=== PATIENT | female | born 1930 | race African-American/Black ===

== ENCOUNTER 2018-01-08 13:51 | Inpatient (IN) | payer MEDICARE, MEDICAID ==
[~2018-01-08] VITALS: Ht 154.9 cm; Wt 45.4 kg
[~2018-01-08 13:51] MED LIST: GLYB5TAB4; LOSA50TA20 PO; azithromycin; ibuprofen PO; metformin PO; tramadol PO
[2018-01-08 16:49] LABS: BASOPHILS % 0.6 % (0.0-2.0); HEMATOCRIT. 38.5 % (36.0-48.0); HEMOGLOBIN. 12.6 g/dL (12.0-16.0); LYMPHOCYTES % 33.8 % (20.0-50.0); MEAN CORPUSCULAR HEMOGLOBIN 30.5 pg (28.0-32.0); MEAN CORPUSCULAR VOLUME 93.5 fL (81.0-99.0); MEAN PLATELET VOLUME 8.9 fl (7.4-10.4); MONOCYTES % 8.3 % (2.0-8.0); NEUTROPHILS % 56.3 % (40.0-76.0); PLATELET 164 x1000/uL (130-400); RED BLOOD CELL COUNT 4.12 mill/uL (4.2-5.4); RED CELL DISTRIBUTION WIDTH 14.5 % (11.6-14.6)
[2018-01-08 16:50] LABS: CHLORIDE 109 mEq/L (98-107)
[2018-01-08] MEDS ORDERED: ACETAMINOPHEN 650MG SUPP PR PRN (18:45)
[2018-01-08] MEDS ORDERED: DEXTROSE 50% WATER 50ML SYRINGE IV PRN (18:45)
[2018-01-08] MEDS ORDERED: HYDROCODONE/ACETAMINOPHEN 10/325MG TABLET PO PRN (18:45)
[2018-01-08] MEDS ORDERED: ONDANSETRON HCL 4MG/2ML INJ IV PRN (18:45)
[2018-01-08] MEDS ORDERED: DIPHENHYDRAMINE 50MG/ML VIAL IV PRN (18:45)
[2018-01-08] MEDS ORDERED: IPRATROPIUM/ALBUTEROL 0.5-3(2.5)MG/3ML NEB INH PRN (18:45)
[2018-01-08] MEDS ORDERED: ACETAMINOPHEN 325MG TABLET PO PRN (18:45)
[2018-01-08] MEDS ORDERED: CLONIDINE 0.1MG TABLET PO PRN (18:45)
[2018-01-08] MEDS ORDERED: GUAIFENESIN 200MG/10ML SUGAR FREE UDC PO PRN (18:45)
[2018-01-08] MEDS ORDERED: ENOXAPARIN 40MG/0.4ML SYR SUBCUT SCH (18:45)
[2018-01-08] MEDS ORDERED: ACETAMINOPHEN 650MG/20.3ML UDC GT PRN (18:45)
[2018-01-08] MEDS ORDERED: NA PHOS,M-B/NA PHOS,DI-BA ENEMA 118ML PR PRN (18:45)
[2018-01-08] MEDS ORDERED: MAGNESIUM/ALUMINUM HYDROXIDE/SIMETHICONE 30ML UDC PO PRN (18:45)
[2018-01-08] MEDS: INSULIN LISPRO 100 UNITS/ML SUBCUT SCH (21:00)
[2018-01-08 21:10] VITALS: BP 145/92
[2018-01-08] MEDS: BLOOD SUGAR DIAGNOSTIC STRIP TEST SCH (21:42)
[2018-01-08] MEDS: SODIUM CHLORIDE 0.9% INJ 3ML FLUSH IVF SCH (21:45)
[2018-01-08 22:00] VITALS: BP 145/92
[2018-01-08] MEDS: ENOXAPARIN 30MG/0.3ML SYR SUBCUT SCH (22:08)
[2018-01-09] VITALS: BP 133/76
[2018-01-09 01:36] LABS: CREATINE KINASE MB FRACTION 1.5 ng/mL (0.5-3.6)
[2018-01-09 04:00] VITALS: BP 130/80
[2018-01-09 06:59] LABS: BASOPHILS % 0.9 % (0.0-2.0); EOSINOPHILS % 2.8 % (0.0-5.0); HEMATOCRIT. 38.1 % (36.0-48.0); HEMOGLOBIN. 12.4 g/dL (12.0-16.0); LYMPHOCYTES % 43.6 % (20.0-50.0); MEAN CORPUSCULAR HEMOGLOBIN 30.3 pg (28.0-32.0); MEAN CORPUSCULAR VOLUME 93.1 fL (81.0-99.0); MEAN PLATELET VOLUME 9.7 fl (7.4-10.4); MONOCYTES % 9.2 % (2.0-8.0); NEUTROPHILS % 43.5 % (40.0-76.0); PLATELET 170 x1000/uL (130-400); RED CELL DISTRIBUTION WIDTH 14.3 % (11.6-14.6)
[2018-01-09 07:33] LABS: CHLORIDE 110 mEq/L (98-107)
[2018-01-09] MEDS: INSULIN LISPRO 100 UNITS/ML SUBCUT SCH ×4 (07:40→21:00)
[2018-01-09 07:53] LABS: CREATINE KINASE 50 IU/L (26-192); HDL CHOLESTEROL 53 mg/dL (40-59); LDL CHOLESTEROL 74 mg/dL (5-100)
[2018-01-09 07:57] LABS: CREATINE KINASE MB FRACTION 1.1 ng/mL (0.5-3.6)
[2018-01-09 08:00] VITALS: BP_SYST 102; BP_SYST 112; BP_SYST 132; BP_DIAS 65; BP_DIAS 73; BP_DIAS 80
[2018-01-09 12:00] VITALS: BP 110/74
[2018-01-09] MEDS: BLOOD SUGAR DIAGNOSTIC STRIP TEST SCH ×3 (12:35→21:06)
[2018-01-09] MEDS: SODIUM CHLORIDE 0.9% INJ 3ML FLUSH IVF SCH ×2 (13:36→21:06)
[2018-01-09] MEDS: HYDROCODONE/ACETAMINOPHEN 5/325MG TABLET PO PRN ×2 (13:49→18:02)
[2018-01-09 15:26] LABS: CLARITY URINE CLOUDY (CLEAR); COLOR URINE DARK YELLOW (YELLOW); KETONES URINE NEGATIVE (NEGATIVE); LEUKOCYTE ESTERASE URINE 2+ (NEGATIVE); NITRITE URINE NEGATIVE (NEGATIVE); OCCULT BLOOD URINE NEGATIVE (NEGATIVE); PROTEIN URINE NEGATIVE (NEGATIVE); SPECIFIC GRAVITY URINE 1.017 (1.005-1.030)
[2018-01-09 15:41] LABS: *BARBITURATES SCREEN URINE NEGATIVE (NEGATIVE); *COCAINE SCREEN URINE NEGATIVE (NEGATIVE)
[2018-01-09 15:42] LABS: *AMPHETAMINES SCREEN URINE NEGATIVE (NEGATIVE); *BENZODIAZEPINES SCREEN URINE NEGATIVE (NEGATIVE); METHADONE URINE SCREEN NEGATIVE (NEGATIVE); OPIATES URINE SCREEN NEGATIVE (NEGATIVE); PHENCYCLIDINE URINE SCREEN NEGATIVE (NEGATIVE)
[2018-01-09 15:43] LABS: CANNABINOID URINE SCREEN NEGATIVE (NEGATIVE)
[2018-01-09 16:00] VITALS: BP 130/89
[2018-01-09] MEDS ORDERED: POTASSIUM CHLORIDE 20MEQ TABLET SR PO NR (19:30)
[2018-01-09 20:00] VITALS: BP_SYST 121; BP_SYST 132; BP_SYST 97; BP_DIAS 68; BP_DIAS 72; BP_DIAS 76
[2018-01-09] MEDS: ENOXAPARIN 30MG/0.3ML SYR SUBCUT SCH (23:27)
[2018-01-10] VITALS: BP 139/95
[2018-01-10] MEDS: IPRATROPIUM/ALBUTEROL 0.5-3(2.5)MG/3ML NEB INH SCH ×4 (00:50→21:41)
[2018-01-10 04:00] VITALS: BP 141/72
[2018-01-10] MEDS: HYDROCODONE/ACETAMINOPHEN 5/325MG TABLET PO PRN ×2 (04:11→17:36)
[2018-01-10] MEDS: SODIUM CHLORIDE 0.9% INJ 3ML FLUSH IVF SCH ×3 (05:40→21:38)
[2018-01-10] MEDS: INSULIN LISPRO 100 UNITS/ML SUBCUT SCH ×4 (07:40→21:00)
[2018-01-10 08:00] VITALS: BP 127/78
[2018-01-10] MEDS ORDERED: IOHEXOL-350 100 ML BOTTLE ONE (09:45)
[2018-01-10] MEDS: ASPIRIN 81MG TABLET PO SCH (10:37)
[2018-01-10] MEDS: NITROFURANTOIN 100MG M/M CAPSULE PO SCH ×2 (10:37→21:38)
[2018-01-10] MEDS: MIDODRINE HCL 2.5MG TABLET PO SCH ×3 (10:38→17:35)
[2018-01-10] MEDS: BLOOD SUGAR DIAGNOSTIC STRIP TEST SCH ×3 (11:32→21:00)
[2018-01-10 12:00] VITALS: BP_SYST 103; BP_SYST 85; BP_SYST 94; BP_DIAS 52; BP_DIAS 54; BP_DIAS 63
[2018-01-10 16:00] VITALS: BP 135/82
[2018-01-10 20:00] VITALS: BP_SYST 139; BP_SYST 86; BP_SYST 90; BP_DIAS 54; BP_DIAS 60; BP_DIAS 89
[2018-01-10] MEDS: ENOXAPARIN 30MG/0.3ML SYR SUBCUT SCH (23:40)
[2018-01-11] VITALS (7 sets, daily range): BP systolic 90–144; BP diastolic 52–83
[2018-01-11 00:39] LABS: CHLORIDE 106 mEq/L (98-107)
[2018-01-11 00:44] LABS: BASOPHILS % 0.9 % (0.0-2.0); EOSINOPHILS % 2.6 % (0.0-5.0); HEMATOCRIT. 38.7 % (36.0-48.0); HEMOGLOBIN. 12.8 g/dL (12.0-16.0); LYMPHOCYTES % 51.4 % (20.0-50.0); MEAN CORPUSCULAR HEMOGLOBIN 31.3 pg (28.0-32.0); MEAN CORPUSCULAR VOLUME 94.7 fL (81.0-99.0); MEAN PLATELET VOLUME 9.1 fl (7.4-10.4); MONOCYTES % 9.1 % (2.0-8.0); PLATELET 201 x1000/uL (130-400); RED BLOOD CELL COUNT 4.09 mill/uL (4.2-5.4); RED CELL DISTRIBUTION WIDTH 14.4 % (11.6-14.6)
[2018-01-11] MEDS: HYDROCODONE/ACETAMINOPHEN 5/325MG TABLET PO PRN ×2 (00:49→06:14)
[2018-01-11] MEDS: IPRATROPIUM/ALBUTEROL 0.5-3(2.5)MG/3ML NEB INH SCH ×2 (01:18→08:33)
[2018-01-11] MEDS: BUDESONIDE 0.5MG/2ML NEB HHN SCH ×3 (05:00→21:25)
[2018-01-11] MEDS: BLOOD SUGAR DIAGNOSTIC STRIP TEST SCH ×4 (05:29→20:16)
[2018-01-11] MEDS: SODIUM CHLORIDE 0.9% INJ 3ML FLUSH IVF SCH ×3 (05:42→20:53)
[2018-01-11] MEDS: INSULIN LISPRO 100 UNITS/ML SUBCUT SCH ×4 (05:52→20:16)
[2018-01-11 07:40] LABS: EOSINOPHILS % 3.2 % (0.0-5.0); HEMATOCRIT. 39.4 % (36.0-48.0); HEMOGLOBIN. 12.8 g/dL (12.0-16.0); LYMPHOCYTES % 55.5 % (20.0-50.0); MEAN CORPUSCULAR HEMOGLOBIN 30.6 pg (28.0-32.0); MEAN PLATELET VOLUME 9.4 fl (7.4-10.4); MONOCYTES % 9.6 % (2.0-8.0); NEUTROPHILS % 30.7 % (40.0-76.0); PLATELET 191 x1000/uL (130-400); RED BLOOD CELL COUNT 4.19 mill/uL (4.2-5.4); RED CELL DISTRIBUTION WIDTH 14.3 % (11.6-14.6)
[2018-01-11] MEDS: NITROFURANTOIN 100MG M/M CAPSULE PO SCH ×2 (09:14→20:52)
[2018-01-11] MEDS: DOCUSATE SODIUM 100MG CAPSULE PO PRN ×2 (09:14→12:37)
[2018-01-11] MEDS: MIDODRINE HCL 2.5MG TABLET PO SCH ×3 (09:14→16:40)
[2018-01-11] MEDS: ASPIRIN 81MG TABLET PO SCH (09:15)
[2018-01-11] MEDS ORDERED: DEXT 5%/0.45% NACL 1000ML 1,000 ML IV SCH (13:45)
[2018-01-11] MEDS: IPRATROPIUM BROMIDE (0.02%) 0.5MG/2.5ML NEB HHN SCH ×2 (15:16→21:25)
[2018-01-11] MEDS ORDERED: POTASSIUM CHLORIDE 20MEQ TABLET SR PO SCH (16:00)
[2018-01-11] MEDS ORDERED: MAGNESIUM CITRATE 300ML SOLUTION PO SCH (16:00)
[2018-01-11] MEDS: ENOXAPARIN 30MG/0.3ML SYR SUBCUT SCH (23:58)
[2018-01-12] VITALS: BP 120/65
[2018-01-12] MEDS: IPRATROPIUM BROMIDE (0.02%) 0.5MG/2.5ML NEB HHN SCH ×2 (02:18→08:20)
[2018-01-12 04:00] VITALS: BP 112/82
[2018-01-12] MEDS: HYDROCODONE/ACETAMINOPHEN 5/325MG TABLET PO PRN ×2 (04:50→08:55)
[2018-01-12] MEDS: SODIUM CHLORIDE 0.9% INJ 3ML FLUSH IVF SCH (06:00)
[2018-01-12] MEDS: INSULIN LISPRO 100 UNITS/ML SUBCUT SCH (06:04)
[2018-01-12] MEDS: BLOOD SUGAR DIAGNOSTIC STRIP TEST SCH (06:04)
[2018-01-12 07:54] VITALS: BP 107/58
[2018-01-12 08:00] VITALS: BP 107/58
[2018-01-12] MEDS: BUDESONIDE 0.5MG/2ML NEB HHN SCH (08:20)
[2018-01-12] MEDS: DOCUSATE SODIUM 100MG CAPSULE PO PRN (08:54)
[2018-01-12] MEDS: MIDODRINE HCL 2.5MG TABLET PO SCH (08:54)
[2018-01-12] MEDS: NITROFURANTOIN 100MG M/M CAPSULE PO SCH (08:54)
[2018-01-12] MEDS: ASPIRIN 81MG TABLET PO SCH (08:55)
== END 2018-01-12 10:33 | disposition home or self-care (01) | DRG 871 ==
LOC: ER 13:51 → ENRESERV 20:20 → 8WST 21:09
PROVIDERS: ADMIT Family Medicine; ATTEND Family Medicine
DX: A41.9 Sepsis, unspecified organism (principal); J96.00 Acute respiratory failure, unspecified whether with hypoxia or hypercapnia; I50.43 Acute on chronic combined systolic (congestive) and diastolic (congestive) heart failure; J84.9 Interstitial pulmonary disease, unspecified; N39.0 Urinary tract infection, site not specified; I42.9 Cardiomyopathy, unspecified; I48.1 Persistent atrial fibrillation; I11.0 Hypertensive heart disease with heart failure; E11.9 Type 2 diabetes mellitus without complications; I65.29 Occlusion and stenosis of unspecified carotid artery; E87.6 Hypokalemia; F17.210 Nicotine dependence, cigarettes, uncomplicated; I34.0 Nonrheumatic mitral (valve) insufficiency; J44.9 Chronic obstructive pulmonary disease, unspecified; I48.2 Chronic atrial fibrillation; I95.1 Orthostatic hypotension; K21.9 Gastro-esophageal reflux disease without esophagitis; K44.9 Diaphragmatic hernia without obstruction or gangrene; K80.20 Calculus of gallbladder without cholecystitis without obstruction; Z86.73 Personal history of transient ischemic attack (TIA), and cerebral infarction without residual deficits; Z79.899 Other long term (current) drug therapy; Z71.6 Tobacco abuse counseling
CPT/HCPCS: 36415; 71045; 71275; 80048; 80061; 80305; 82550; 82553; 82962; 83036; 83605; 83735; 83880; 84484; 85379; 87070; 87430; 87804; 92610; 93005; 93970; 94640; 97162; 99285; J1650; J7620; J7626; Q9967

== ENCOUNTER 2018-02-24 13:47 | Emergency (ER) | payer MEDICARE, MEDICAID ==
[~2018-02-24] VITALS: Ht 152.4 cm; Wt 45.5 kg
[~2018-02-24 13:47] MED LIST changes: -LOSA50TA20 PO; -azithromycin; -ibuprofen PO; -metformin PO; -tramadol PO
[2018-02-24] MEDS ORDERED: SODIUM CHLORIDE 0.9% 500 ML IV ONE (14:36)
[2018-02-24] MEDS ORDERED: ONDANSETRON HCL 4MG/2ML INJ IV ONE (14:45)
[2018-02-24] MEDS ORDERED: MECLIZINE 25MG TABLET PO ONE (14:45)
[2018-02-24 15:30] LABS: BASOPHILS % 1.3 % (0.0-2.0); EOSINOPHILS % 3.7 % (0.0-5.0); HEMATOCRIT. 36.2 % (36.0-48.0); HEMOGLOBIN. 11.6 g/dL (12.0-16.0); LYMPHOCYTES % 34.9 % (20.0-50.0); MEAN CORPUSCULAR HEMOGLOBIN 29.7 pg (28.0-32.0); MEAN CORPUSCULAR VOLUME 93.1 fL (81.0-99.0); MONOCYTES % 7.6 % (2.0-8.0); NEUTROPHILS % 52.5 % (40.0-76.0); PLATELET 212 x1000/uL (130-400); RED BLOOD CELL COUNT 3.88 mill/uL (4.2-5.4); RED CELL DISTRIBUTION WIDTH 15.9 % (11.6-14.6)
[2018-02-24 15:36] LABS: CHLORIDE 112 mEq/L (98-107)
[2018-02-24 18:02] VITALS: BP 138/69
== END 2018-02-24 18:04 | disposition home or self-care (01) ==
LOC: ER 13:47
DX: R42 Dizziness and giddiness (principal); E11.9 Type 2 diabetes mellitus without complications; I10 Essential (primary) hypertension; Z98.1 Arthrodesis status; Z98.890 Other specified postprocedural states; Z87.891 Personal history of nicotine dependence; Z79.84 Long term (current) use of oral hypoglycemic drugs
CPT/HCPCS: 36415; 71045; 80053; 85025; 93005; 96361; 96374; 99284; J2405; J7030; J8597

== ENCOUNTER 2018-03-17 09:51 | Inpatient (IN) | payer MEDICARE, MEDICAID ==
[~2018-03-17] VITALS: Ht 157.5 cm; Wt 42.6 kg
[2018-03-17] MEDS ORDERED: ALBUTEROL (0.083%) 2.5MG/3ML NEB HHN STA (10:32)
[2018-03-17] MEDS ORDERED: FUROSEMIDE 20MG/2ML VIAL IVP ONE (10:45)
[2018-03-17 11:02] LABS: BASOPHILS % 1.1 % (0.0-2.0); EOSINOPHILS % 4.4 % (0.0-5.0); HEMATOCRIT. 38.8 % (36.0-48.0); HEMOGLOBIN. 12.5 g/dL (12.0-16.0); LYMPHOCYTES % 35.7 % (20.0-50.0); MEAN CORPUSCULAR HEMOGLOBIN 29.9 pg (28.0-32.0); MEAN CORPUSCULAR VOLUME 92.9 fL (81.0-99.0); MEAN PLATELET VOLUME 8.8 fl (7.4-10.4); MONOCYTES % 7.6 % (2.0-8.0); NEUTROPHILS % 51.2 % (40.0-76.0); PLATELET 215 x1000/uL (130-400); RED BLOOD CELL COUNT 4.17 mill/uL (4.2-5.4); RED CELL DISTRIBUTION WIDTH 16.4 % (11.6-14.6)
[2018-03-17 11:05] LABS: CHLORIDE 108 mEq/L (98-107)
[2018-03-17 11:09] LABS: INR 1.1; PARTIAL THROMBOPLASTIN TIME 31.6 sec (23.4-31.0)
[2018-03-17 12:13] LABS: CLARITY URINE CLEAR (CLEAR); COLOR URINE YELLOW (YELLOW); KETONES URINE NEGATIVE (NEGATIVE); LEUKOCYTE ESTERASE URINE NEGATIVE (NEGATIVE); NITRITE URINE NEGATIVE (NEGATIVE); OCCULT BLOOD URINE NEGATIVE (NEGATIVE); PROTEIN URINE NEGATIVE (NEGATIVE); SPECIFIC GRAVITY URINE 1.011 (1.005-1.030)
[2018-03-17] MEDS ORDERED: MAGNESIUM/ALUMINUM HYDROXIDE/SIMETHICONE 30ML UDC PO PRN (12:15)
[2018-03-17] MEDS ORDERED: IPRATROPIUM/ALBUTEROL 0.5-3(2.5)MG/3ML NEB INH PRN (12:15)
[2018-03-17] MEDS ORDERED: MORPHINE SULFATE 4 MG/ML CPJ (NOT FOR IM USE) IV PRN (12:15)
[2018-03-17] MEDS ORDERED: DIPHENHYDRAMINE 50MG/ML VIAL IV PRN (12:15)
[2018-03-17] MEDS ORDERED: CLONIDINE 0.1MG TABLET PO PRN (12:15)
[2018-03-17] MEDS ORDERED: ONDANSETRON HCL 4MG/2ML INJ IV PRN (12:15)
[2018-03-17] MEDS ORDERED: DOCUSATE SODIUM 100MG CAPSULE PO PRN (12:15)
[2018-03-17] MEDS ORDERED: GUAIFENESIN 200MG/10ML SUGAR FREE UDC PO PRN (12:15)
[2018-03-17 16:00] VITALS: BP 132/81
[2018-03-17] MEDS: ACETAMINOPHEN 325MG TABLET PO PRN ×2 (16:29→22:03)
[2018-03-17 16:40] VITALS: BP 132/81
[2018-03-17] MEDS ORDERED: LEVOFLOXACIN 500MG PREMIX 100 ML IV NR (17:30)
[2018-03-17] MEDS: DILTIAZEM HCL 30MG TABLET PO SCH ×2 (18:20→22:02)
[2018-03-17] MEDS: ASPIRIN 81MG EC TABLET PO SCH (18:20)
[2018-03-17] MEDS: ENOXAPARIN 30MG/0.3ML SYR SUBCUT SCH (18:24)
[2018-03-17 20:00] VITALS: BP 111/72
[2018-03-17] MEDS ORDERED: DEXTROSE 50% WATER 50ML SYRINGE IV PRN (23:30)
[2018-03-17] MEDS: BUDESONIDE 0.5MG/2ML NEB HHN SCH (23:34)
[2018-03-17] MEDS: IPRATROPIUM/ALBUTEROL 0.5-3(2.5)MG/3ML NEB HHN SCH (23:35)
[2018-03-18 04:00] VITALS: BP 131/71
[2018-03-18] MEDS: HYDROCODONE/ACETAMINOPHEN 5/325MG TABLET PO PRN ×2 (04:56→11:00)
[2018-03-18] MEDS: DILTIAZEM HCL 30MG TABLET PO SCH ×3 (05:53→22:00)
[2018-03-18 06:36] LABS: BASOPHILS % 1.1 % (0.0-2.0); HEMATOCRIT. 37.5 % (36.0-48.0); HEMOGLOBIN. 11.9 g/dL (12.0-16.0); LYMPHOCYTES % 36.8 % (20.0-50.0); MEAN CORPUSCULAR HEMOGLOBIN 29.8 pg (28.0-32.0); MEAN CORPUSCULAR VOLUME 93.8 fL (81.0-99.0); MEAN PLATELET VOLUME 8.9 fl (7.4-10.4); MONOCYTES % 11.5 % (2.0-8.0); NEUTROPHILS % 46.6 % (40.0-76.0); PLATELET 191 x1000/uL (130-400); RED CELL DISTRIBUTION WIDTH 16.5 % (11.6-14.6)
[2018-03-18 06:47] LABS: CHLORIDE 108 mEq/L (98-107)
[2018-03-18] MEDS: BLOOD SUGAR DIAGNOSTIC STRIP TEST SCH ×4 (06:50→21:45)
[2018-03-18 06:55] LABS: LDL CHOLESTEROL 66 mg/dL (5-100)
[2018-03-18 06:57] LABS: HDL CHOLESTEROL 51 mg/dL (40-59); T4 FREE 1.32 ng/dL (0.76-1.46)
[2018-03-18] MEDS: INSULIN LISPRO 100 UNITS/ML SUBCUT SCH ×4 (07:50→21:00)
[2018-03-18 08:00] VITALS: BP 131/83
[2018-03-18] MEDS: ASPIRIN 81MG EC TABLET PO SCH (08:10)
[2018-03-18] MEDS: IPRATROPIUM/ALBUTEROL 0.5-3(2.5)MG/3ML NEB HHN SCH ×4 (08:14→22:33)
[2018-03-18] MEDS ORDERED: FUROSEMIDE 40MG/4ML VIAL IV SCH (09:00)
[2018-03-18 12:00] VITALS: BP 125/79
[2018-03-18 16:00] VITALS: BP 95/68
[2018-03-18] MEDS: LEVOFLOXACIN 250MG PREMIX 50 ML IV SCH (17:02)
[2018-03-18] MEDS: FUROSEMIDE 20MG TABLET PO SCH (17:02)
[2018-03-18] MEDS: ENOXAPARIN 30MG/0.3ML SYR SUBCUT SCH (17:02)
[2018-03-18 20:00] VITALS: BP 119/74
[2018-03-18] MEDS: NYSTATIN 100,000 UNITS/GM CREAM 15GM TOP SCH (21:43)
[2018-03-18] MEDS: ACETAMINOPHEN 325MG TABLET PO PRN (21:44)
[2018-03-18] MEDS: NEOMY SULF/BACITRAC ZN/POLY OINT 28GM TOP SCH (21:45)
[2018-03-18] MEDS: BUDESONIDE 0.5MG/2ML NEB HHN SCH (22:31)
[2018-03-19] VITALS: BP 118/76
[2018-03-19] MEDS: ACETAMINOPHEN 325MG TABLET PO PRN (03:55)
[2018-03-19] MEDS: DILTIAZEM HCL 30MG TABLET PO SCH (06:48)
[2018-03-19] MEDS: BLOOD SUGAR DIAGNOSTIC STRIP TEST SCH ×3 (06:54→21:00)
[2018-03-19 07:09] LABS: HEMATOCRIT. 39.5 % (36.0-48.0); HEMOGLOBIN. 12.6 g/dL (12.0-16.0); LYMPHOCYTES % 37.5 % (20.0-50.0); MEAN CORPUSCULAR HEMOGLOBIN 29.6 pg (28.0-32.0); MEAN CORPUSCULAR VOLUME 93.1 fL (81.0-99.0); MEAN PLATELET VOLUME 9.5 fl (7.4-10.4); MONOCYTES % 8.3 % (2.0-8.0); NEUTROPHILS % 49.2 % (40.0-76.0); PLATELET 213 x1000/uL (130-400); RED BLOOD CELL COUNT 4.24 mill/uL (4.2-5.4); RED CELL DISTRIBUTION WIDTH 16.2 % (11.6-14.6)
[2018-03-19] MEDS: INSULIN LISPRO 100 UNITS/ML SUBCUT SCH ×3 (07:50→21:00)
[2018-03-19 08:00] VITALS: BP 133/63
[2018-03-19] MEDS: IPRATROPIUM/ALBUTEROL 0.5-3(2.5)MG/3ML NEB HHN SCH ×3 (08:00→21:43)
[2018-03-19] MEDS: NEOMY SULF/BACITRAC ZN/POLY OINT 28GM TOP SCH ×2 (09:37→21:11)
[2018-03-19] MEDS: NYSTATIN 100,000 UNITS/GM CREAM 15GM TOP SCH ×2 (09:37→21:10)
[2018-03-19] MEDS: ASPIRIN 81MG EC TABLET PO SCH (09:37)
[2018-03-19] MEDS: FUROSEMIDE 20MG TABLET PO SCH ×2 (09:42→18:28)
[2018-03-19] MEDS: BUDESONIDE 0.5MG/2ML NEB HHN SCH ×3 (09:45→21:43)
[2018-03-19 12:00] VITALS: BP 130/60
[2018-03-19 16:00] VITALS: BP 96/61
[2018-03-19] MEDS: DILTIAZEM HCL 60MG TABLET PO SCH (18:00)
[2018-03-19] MEDS: LEVOFLOXACIN 250MG PREMIX 50 ML IV SCH (18:24)
[2018-03-19] MEDS: ENOXAPARIN 30MG/0.3ML SYR SUBCUT SCH (18:24)
[2018-03-19] MEDS: LORAZEPAM 2MG/ML CPJ IV PRN (18:24)
[2018-03-19 20:00] VITALS: BP 116/71
[2018-03-20] VITALS: BP 117/76
[2018-03-20] MEDS: LORAZEPAM 2MG/ML CPJ IV PRN (02:00)
[2018-03-20 04:00] VITALS: BP 114/70
[2018-03-20] MEDS: BLOOD SUGAR DIAGNOSTIC STRIP TEST SCH ×4 (06:39→20:45)
[2018-03-20] MEDS: DILTIAZEM HCL 60MG TABLET PO SCH ×5 (06:41→23:21)
[2018-03-20] MEDS: FUROSEMIDE 20MG TABLET PO SCH ×3 (06:41→17:25)
[2018-03-20 06:57] LABS: BASOPHILS % 1.2 % (0.0-2.0); EOSINOPHILS % 2.8 % (0.0-5.0); HEMATOCRIT. 40.7 % (36.0-48.0); HEMOGLOBIN. 13.1 g/dL (12.0-16.0); LYMPHOCYTES % 35.7 % (20.0-50.0); MEAN CORPUSCULAR VOLUME 93.4 fL (81.0-99.0); MONOCYTES % 10.7 % (2.0-8.0); NEUTROPHILS % 49.6 % (40.0-76.0); PLATELET 200 x1000/uL (130-400); RED BLOOD CELL COUNT 4.35 mill/uL (4.2-5.4); RED CELL DISTRIBUTION WIDTH 16.7 % (11.6-14.6)
[2018-03-20] MEDS: INSULIN LISPRO 100 UNITS/ML SUBCUT SCH ×4 (07:50→20:45)
[2018-03-20 08:42] VITALS: BP 117/76
[2018-03-20] MEDS: ASPIRIN 81MG EC TABLET PO SCH (08:50)
[2018-03-20] MEDS: NYSTATIN 100,000 UNITS/GM CREAM 15GM TOP SCH ×2 (08:51→20:45)
[2018-03-20] MEDS: NEOMY SULF/BACITRAC ZN/POLY OINT 28GM TOP SCH ×2 (08:51→20:45)
[2018-03-20] MEDS: IPRATROPIUM/ALBUTEROL 0.5-3(2.5)MG/3ML NEB HHN SCH ×2 (09:45→21:17)
[2018-03-20 12:29] VITALS: BP 108/52
[2018-03-20 16:20] VITALS: BP 101/59
[2018-03-20] MEDS: LEVOFLOXACIN 250MG TABLET PO SCH (17:25)
[2018-03-20] MEDS: ENOXAPARIN 30MG/0.3ML SYR SUBCUT SCH (17:25)
[2018-03-20 20:14] VITALS: BP 103/56
[2018-03-20] MEDS: BUDESONIDE 0.5MG/2ML NEB HHN SCH (21:17)
[2018-03-21] VITALS: BP 121/61
[2018-03-21 04:00] VITALS: BP 132/72
[2018-03-21] MEDS: DILTIAZEM HCL 60MG TABLET PO SCH ×5 (05:59→23:44)
[2018-03-21] MEDS: FUROSEMIDE 20MG TABLET PO SCH ×2 (06:18→18:28)
[2018-03-21] MEDS: BLOOD SUGAR DIAGNOSTIC STRIP TEST SCH ×4 (06:56→21:35)
[2018-03-21] MEDS: INSULIN LISPRO 100 UNITS/ML SUBCUT SCH ×4 (07:50→21:33)
[2018-03-21 08:00] VITALS: BP 102/49
[2018-03-21] MEDS: IPRATROPIUM/ALBUTEROL 0.5-3(2.5)MG/3ML NEB HHN SCH (08:35)
[2018-03-21] MEDS: BUDESONIDE 0.5MG/2ML NEB HHN SCH ×2 (08:36→22:21)
[2018-03-21] MEDS: NYSTATIN 100,000 UNITS/GM CREAM 15GM TOP SCH ×2 (09:39→21:37)
[2018-03-21] MEDS: ASPIRIN 81MG EC TABLET PO SCH (09:39)
[2018-03-21] MEDS: NEOMY SULF/BACITRAC ZN/POLY OINT 28GM TOP SCH ×2 (09:39→21:36)
[2018-03-21 12:00] VITALS: BP 103/47
[2018-03-21] MEDS: ACETAMINOPHEN 325MG TABLET PO PRN (12:21)
[2018-03-21] MEDS ORDERED: DIGOXIN 500MCG/2ML AMP IV SCH (13:12)
[2018-03-21 16:00] VITALS: BP 102/60
[2018-03-21] MEDS: LEVOFLOXACIN 250MG TABLET PO SCH (18:28)
[2018-03-21] MEDS: ENOXAPARIN 30MG/0.3ML SYR SUBCUT SCH (18:31)
[2018-03-21 20:00] VITALS: BP 107/61
[2018-03-22] VITALS: BP 110/66
[2018-03-22 04:00] VITALS: BP 126/59
[2018-03-22] MEDS: DILTIAZEM HCL 60MG TABLET PO SCH (06:07)
[2018-03-22 06:09] LABS: BASOPHILS % 0.8 % (0.0-2.0); EOSINOPHILS % 0.9 % (0.0-5.0); HEMATOCRIT. 37.8 % (36.0-48.0); HEMOGLOBIN. 12.3 g/dL (12.0-16.0); LYMPHOCYTES % 24.4 % (20.0-50.0); MEAN CORPUSCULAR HEMOGLOBIN 30.2 pg (28.0-32.0); MEAN CORPUSCULAR VOLUME 92.8 fL (81.0-99.0); MEAN PLATELET VOLUME 9.2 fl (7.4-10.4); MONOCYTES % 9.7 % (2.0-8.0); NEUTROPHILS % 64.2 % (40.0-76.0); PLATELET 209 x1000/uL (130-400); RED BLOOD CELL COUNT 4.07 mill/uL (4.2-5.4); RED CELL DISTRIBUTION WIDTH 16.3 % (11.6-14.6)
[2018-03-22] MEDS: FUROSEMIDE 20MG TABLET PO SCH (06:24)
[2018-03-22] MEDS: BLOOD SUGAR DIAGNOSTIC STRIP TEST SCH ×2 (06:24→12:20)
[2018-03-22] MEDS: INSULIN LISPRO 100 UNITS/ML SUBCUT SCH ×2 (07:28→12:50)
[2018-03-22 08:10] VITALS: BP 122/82
[2018-03-22] MEDS: BUDESONIDE 0.5MG/2ML NEB HHN SCH (09:00)
[2018-03-22] MEDS: ASPIRIN 81MG EC TABLET PO SCH (09:06)
[2018-03-22] MEDS: NYSTATIN 100,000 UNITS/GM CREAM 15GM TOP SCH (09:07)
[2018-03-22] MEDS: NEOMY SULF/BACITRAC ZN/POLY OINT 28GM TOP SCH (09:07)
[2018-03-22 12:00] VITALS: BP 112/70
[2018-03-22] MEDS ORDERED: POTASSIUM CHLORIDE 20MEQ TABLET SR PO SCH (13:00)
[2018-03-22 16:00] VITALS: BP 102/68
[2018-03-22] MEDS ORDERED: DIGOXIN 125MCG TABLET PO SCH (18:00)
[2018-03-22] MEDS ORDERED: DILTIAZEM HCL 90MG TABLET PO SCH (18:00)
[2018-03-22] MEDS ORDERED: AMIODARONE HCL 200 MG TABLET PO SCH (21:00)
== END 2018-03-22 16:47 | disposition home or self-care (01) | DRG 291 ==
LOC: ER 10:15 → 6WST 11:46 → EDBEDREQTM 11:50 → EDBEDREQ 11:50 → 6WST 23:06
PROVIDERS: ADMIT Internal Medicine; ATTEND Internal Medicine
DX: I11.0 Hypertensive heart disease with heart failure (principal); J96.00 Acute respiratory failure, unspecified whether with hypoxia or hypercapnia; J84.9 Interstitial pulmonary disease, unspecified; I42.9 Cardiomyopathy, unspecified; I65.21 Occlusion and stenosis of right carotid artery; I48.2 Chronic atrial fibrillation; I25.10 Atherosclerotic heart disease of native coronary artery without angina pectoris; K21.9 Gastro-esophageal reflux disease without esophagitis; J44.9 Chronic obstructive pulmonary disease, unspecified; K44.9 Diaphragmatic hernia without obstruction or gangrene; I34.0 Nonrheumatic mitral (valve) insufficiency; E11.9 Type 2 diabetes mellitus without complications; I27.20 Pulmonary hypertension, unspecified; I50.43 Acute on chronic combined systolic (congestive) and diastolic (congestive) heart failure; G89.29 Other chronic pain; F17.200 Nicotine dependence, unspecified, uncomplicated; L89.899 Pressure ulcer of other site, unspecified stage; S50.312A Abrasion of left elbow, initial encounter; X58.XXXA Exposure to other specified factors, initial encounter; Z86.73 Personal history of transient ischemic attack (TIA), and cerebral infarction without residual deficits; Z79.84 Long term (current) use of oral hypoglycemic drugs; Z91.81 History of falling; Z79.899 Other long term (current) drug therapy; Z71.6 Tobacco abuse counseling; Y93.89 Activity, other specified; Y92.89 Other specified places as the place of occurrence of the external cause; Y99.8 Other external cause status
CPT/HCPCS: 36415; 71045; 80048; 80061; 82962; 83605; 83735; 83880; 84134; 84145; 84439; 84443; 84484; 93005; 93306; 94640; 96374; 97116; 97530; 99285; A6261; C1893; J1160; J1650; J1815; J1940; J1956; J2060; J7050; J7070; J7611; J7620; J7626